=== PATIENT | female | born 1940 | race Caucasian/White ===

== ENCOUNTER 2017-09-30 03:20 | Emergency (ER) | payer MEDICARE ==
[2017-09-30] MEDS ORDERED: Sodium Chloride 0.9% 5 ML Syringe FLUSH PRN (03:46)
--- NOTE | 2017-09-30 03:57 | EDM.PDOC ---
ED HPI GENERAL MEDICAL PROBLEM - General Chief Complaint: Headache Stated Complaint: headache Time Seen by Provider: 09/30/17 03:30 Source of Information: Reports: Patient History Limitations: Reports: No Limitations - History of Present Illness INITIAL COMMENTS - FREE TEXT/NARRATIVE: 77 YO WF presents to ER complaining of occipital headache which began 2 days ago. Pt reports she bumped her head on a car door 2 days ago and has been having intermittent headaches since. Pt reports pain is also to the left side of her neck and left shoulder and worse with movement of her neck. Pt woke her this am and stated she wanted to go to the hospital to be evaluated due to the pain. Pt denies any fever/chills, no nausea/vomiting, no confusion or neurological deficits. Pt has had history of CVA in the past. Pt is alert and oriented x 4 without any obvious focal neurological deficits. Onset Date: 09/28/17 Duration: Day(s): (2), Improving Location: Reports: Head Quality: Reports: Ache Severity: Moderate Improves with: Reports: None Worsens with: Reports: Movement Associated Symptoms: Reports: No Other Symptoms, Headaches. Denies: Confusion, Nausea/Vomiting, Weakness Treatments [employer]: Reports: Acetaminophen Headache Pain Score (Numeric/FACES): 8 - Related Data Allergies Allergy/AdvReac Type Severity Reaction Status Date / Time adhesive Allergy Rash Verified 09/30/17 03:28 codeine Allergy Stomach Verified 09/30/17 03:28 Upset raspberry [Raspberry] Allergy Hives Verified 09/30/17 03:28 Home Meds: Home Meds Albuterol [Proair HFA] 2 puff INH Q4HR PRN 07/14/13 [History] Albuterol/Ipratropium [DuoNeb 3.0-0.5 MG/3 ML] 1 unit INH TID 07/14/13 [History] Aspirin [Halfprin] 81 mg PO BID 07/14/13 [History] Cholecalciferol (Vitamin D3) [Vitamin D] 2,000 unit PO DAILY 07/14/13 [History] Dipyridamole [Persantine] 75 mg PO BID 07/14/13 [History] Fluticasone Propionate [Flonase] 1 spray FILI BID 07/14/13 [History] Multivitamins [Tab-A-Rajinder] 1 each PO DAILY 07/14/13 [History] Omeprazole 20 mg PO DAILY 07/14/13 [History] Oxybutynin Chloride [Ditropan Xl] 0.5 tab PO BID 07/14/13 [History] QUEtiapine [SEROquel] 50 mg PO BEDTIME 07/14/13 [History] Simvastatin [Zocor] 40 mg PO BEDTIME 07/14/13 [History] Bisacodyl [Dulcolax] 5 mg PO DAILY PRN 12/19/14 [History] Denosumab [Prolia] 60 mg SUBCUT ASDIRECTED 12/19/14 [History] Docusate Sodium [Colace] 100 mg PO BID 12/19/14 [History] Nystatin/Triamcin [Nystatin-Triamcinolone Ointm] 1 applic TOP BEDTIME 12/19/14 [ History] Acetaminophen [Acetaminophen Extra Strength] 500 - 1,000 mg PO Q4H PRN 09/30/17 [History] Fluticasone Propionate [Flovent HFA 110 MCG] 1 puff INH BID 09/30/17 [History] Polyvinyl Alcohol/Povidone [Artificial Tears Drops] 1 - 2 drop EYEBOTH DAILY PRN 09/30/17 [History] amLODIPine Besylate [Norvasc] 5 mg PO DAILY 09/30/17 [History] buPROPion [buPROPion XL] 300 mg PO DAILY 09/30/17 [History] Past Medical History Other Cardiovascular History: Bradycardia ED ROS GENERAL - Review of Systems Review Of Systems: See Below Constitutional: Reports: No Symptoms HEENT: Reports: No Symptoms Respiratory: Reports: No Symptoms Cardiovascular: Reports: No Symptoms Endocrine: Reports: No Symptoms GI/Abdominal: Reports: No Symptoms : Reports: No Symptoms Musculoskeletal: Reports: Neck Pain Skin: Reports: No Symptoms Neurological: Reports: Headache, Pre-Existing Deficit. Denies: Confusion, Dizziness, Numbness, Paresthesia, Seizure, Syncope, Trouble Speaking, Difficulty Walking, Weakness, Change in Speech, Gait Disturbance Psychiatric: Reports: Depression Hematologic/Lymphatic: Reports: No Symptoms Immunologic: Reports: No Symptoms - Physical Exam Exam: See Below Exam Limited By: No Limitations General Appearance: Alert, WD/WN, No Apparent Distress Eye Exam: Bilateral Eye: EOMI, PERRL Ears: Normal External Exam, Normal Canal, Hearing Grossly Normal, Normal TMs Head Exam: Atraumatic, Normocephalic Neck: Supple, Full Range of Motion, Tender Lateral Respiratory/Chest: No Respiratory Distress, Lungs Clear, Normal Breath Sounds, No Accessory Muscle Use, Chest Non-Tender Cardiovascular: Normal Peripheral Pulses, Regular Rate, Rhythm, No Edema, No Gallop, No JVD, No Murmur, No Rub GI/Abdominal: Normal Bowel Sounds, Soft, Non-Tender, No Organomegaly, No Distention, No Abnormal Bruit, No Mass Neuro Exam (Abbreviated): Alert, Oriented, CN II-XII Intact, Normal Cognition, Normal Gait, Normal Reflexes, No Motor/Sensory Deficits Back Exam: Normal Inspection, Full Range of Motion, NT Extremities: Normal Inspection, Normal Range of Motion, Non-Tender, No Pedal Edema, Normal Capillary Refill Psychiatric: Normal Affect, Normal Mood Skin Exam: Warm, Dry, Intact, Normal Color, No Rash Course - Vital Signs Last Recorded V/S: Last Vital Signs Temp 36.9 C 09/30/17 03:20 Pulse 68 09/30/17 05:18 Resp 18 09/30/17 05:18 BP 149/72 H 09/30/17 05:18 Pulse Ox 92 L 09/30/17 05:18 - Orders/Labs/Meds Orders: Active Orders 24 hr Category Date Time Status Peripheral IV Care [RC] . DIRECTED Care 09/30/17 03:47 Ordered Sodium Chloride 0.9% [Syrex Flush] Med 09/30/17 03:46 Ordered 5 ml FLUSH Q8HR PRN Peripheral IV Insertion Adult [OM.PC] Routine Oth 09/30/17 03:46 Ordered Medication Orders Sodium Chloride (Syrex Flush) 5 ml FLUSH Q8HR PRN PRN Reason: Keep Vein Open Meds: Medications Generic Name Dose Route Start Last Admin Trade Name Freq PRN Reason Stop Dose Admin Sodium Chloride 5 ml 09/30/17 03:46 Syrex Flush FLUSH Q8HR PRN Keep Vein Open Discontinued Medications Generic Name Dose Route Start Last Admin Trade Name Freq PRN Reason Stop Dose Admin Hydromorphone HCl 0.5 mg 09/30/17 04:01 09/30/17 04:13 Dilaudid IVPUSH 09/30/17 04:02 0.5 mg ONETIME ONE Administration Ondansetron HCl 4 mg 09/30/17 04:02 09/30/17 04:13 Zofran IVPUSH 09/30/17 04:03 4 mg ONETIME ONE Administration - Re-Assessments/Exams Free Text/Narrative Re-Assessment/Exam: 09/30/17 04:37 Pt reports significant improvement after pain medication. Pt resting comfortably at this time. Pt alert and oriented x 4 and in NAD Free Text/Narrative Re-Assessment/Exam: 09/30/17 05:34 Pt feels fine and wants to leave prior to CT Head results- called radiologist x 2 regarding delay on read (1.5 hours) and unable to get an offical read at this time. 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 Departure - Departure Time of Disposition: 05:36 Disposition: Home, Self-Care 01 Condition: Good Clinical Impression: Tension-type headache - Discharge Information Instructions: Tension Headache, Adult, [id number] Referrals: Allison Humphries MD [Primary Care Provider] - Forms: ED Department Discharge, Refusal of Care AMA - My Orders Last 24 Hours: My Active Orders 09/30/17 03:46 Sodium Chloride 0.9% [Syrex Flush] 5 ml FLUSH Q8HR PRN Peripheral IV Insertion Adult [OM.PC] Routine 09/30/17 03:47 Peripheral IV Care [RC] . DIRECTED - Assessment/Plan Last 24 Hours: My Active Orders 09/30/17 03:46 Sodium Chloride 0.9% [Syrex Flush] 5 ml FLUSH Q8HR PRN Peripheral IV Insertion Adult [OM.PC] Routine 09/30/17 03:47 Peripheral IV Care [RC] . DIRECTED Assessment:: 1. Occipital headache Plan: 1. Discharge home 2. follow up with PCP for further evaluation and treatment 3. return to ER for worsening symptoms
[2017-09-30] MEDS: HYDROmorphone 1 MG/ML Syringe IVPUSH ONE (04:13)
[2017-09-30] MEDS: Ondansetron 4 MG/2 ML SDV IVPUSH ONE (04:13)
[2017-09-30 05:18] VITALS: BP 149/72
== END 2017-09-30 05:35 | disposition home or self-care (01) ==
LOC: KA.ED 03:20
DX: G44.209 Tension-type headache, unspecified, not intractable (principal); Z88.5 Allergy status to narcotic agent; Z88.8 Allergy status to other drugs, medicaments and biological substances; Z91.018 Allergy to other foods; Z79.899 Other long term (current) drug therapy
CPT/HCPCS: 70450; 96374; 96375; 99282; 99284; J1170; J2405

== ENCOUNTER 2019-10-04 18:29 | Inpatient (IN) | payer MEDICARE ==
[2019-10-04] MEDS ORDERED: Ondansetron 4 MG/2 ML SDV IV PRN (18:32)
[2019-10-04] MEDS ORDERED: Sodium Chloride 0.9% 10 ML Syringe FLUSH PRN (18:32)
[2019-10-04] MEDS ORDERED: Sodium Chloride 0.9% 300 ML IV ONE (18:53)
[2019-10-04] MEDS: cefTRIAXone 1 GM Vial IVPUSH SCH (19:30)
[2019-10-04] MEDS ORDERED: Bisacodyl 5 MG Tab PO PRN (20:38)
[2019-10-04] MEDS ORDERED: Acetaminophen/HYDROcodone 325-5 MG Tab PO PRN (20:47)
[2019-10-04] MEDS: Diclofenac Sodium 1% Gel 100 GM Tube TOP SCH (21:34)
[2019-10-04] MEDS: Docusate Sodium 100 MG Cap PO SCH (21:35)
[2019-10-04] MEDS: QUEtiapine 25 MG Tab PO SCH (21:35)
[2019-10-04] MEDS: Aspirin 81 MG Tab.EC PO SCH (21:36)
[2019-10-04] MEDS: Acetaminophen 500 MG Tab PO PRN (21:38)
[2019-10-04] MEDS: Albuterol/Ipratropium 3.0-0.5 MG/3 ML Neb Soln INH SCH (21:40)
[2019-10-04] MEDS: metroNIDAZOLE/Normal Saline 500 MG in Premix Bag 1 BAG IV SCH (21:41)
[2019-10-05] MEDS: Albuterol/Ipratropium 3.0-0.5 MG/3 ML Neb Soln INH SCH ×3 (06:05→18:15)
[2019-10-05] MEDS: Omeprazole 20 MG Cap.CR PO SCH (08:18)
[2019-10-05] MEDS: metroNIDAZOLE/Normal Saline 500 MG in Premix Bag 1 BAG IV SCH ×3 (08:18→20:45)
[2019-10-05] MEDS: Aspirin 81 MG Tab.EC PO SCH ×2 (08:18→21:57)
[2019-10-05] MEDS: buPROPion 150 MG Tab.ER PO SCH (08:18)
[2019-10-05] MEDS: amLODIPine 5 MG Tab PO SCH (08:18)
[2019-10-05] MEDS: Diclofenac Sodium 1% Gel 100 GM Tube TOP SCH ×3 (08:19→21:58)
[2019-10-05] MEDS: Acetaminophen 500 MG Tab PO PRN (08:29)
[2019-10-05] MEDS: Sodium Chloride 0.9% 1,000 ML IV SCH (08:50)
[2019-10-05] MEDS: Docusate Sodium 100 MG Cap PO SCH ×2 (09:39→21:57)
--- NOTE | 2019-10-05 09:45 | PCM.PN ---
- General Info Date of Service: 10/05/19 Subjective Update: Patient seems to improve today however still with right-sided abdominal pain upon palpation. Seems to be more worried about spouse situation at home. nursing surgical services director consult placed in. Functional Status: Reports: Pain Controlled, Tolerating Diet, Urinating. Denies: Ambulating, New Symptoms - Review of Systems General: Denies: Fever, Weakness, Fatigue, Malaise HEENT: Reports: No Symptoms Pulmonary: Reports: No Symptoms Cardiovascular: Reports: No Symptoms Gastrointestinal: Reports: Abdominal Pain, Diarrhea, Other (Appetite increased. Patient now hungry). Denies: Constipation, Decreased Appetite, Nausea, Vomiting Genitourinary: Reports: No Symptoms Musculoskeletal: Reports: Neck Pain Skin: Reports: Dryness Neurological: Denies: Confusion, Dizziness, Headache, Change in Speech Psychiatric: Reports: Mood Lability, Anxiety - Patient Data Vitals - Most Recent: Last Vital Signs Temp 97.4 F 10/05/19 07:00 Pulse 68 10/05/19 07:00 Resp 20 10/05/19 07:00 BP 144/75 H 10/05/19 08:18 Pulse Ox 94 L 10/05/19 09:11 Weight - Most Recent: 115 lb 12.8 oz I&O - Last 24 Hours: Intake & Output 10/04/19 10/05/19 10/05/19 22:59 06:59 14:59 Intake Total 300 150 Balance 300 150 Lab Results Last 24 Hours: Laboratory Results - last 24 hr 10/04/19 10/05/19 Range/Units 20:15 07:18 WBC 12.69 H (5.00-10.00) 10^3/uL RBC 3.61 L (3.80-5.50) 10^6/uL Hgb 11.0 L (12.0-16.0) g/dL Hct 35.1 L (37.0-47.0) % MCV 97.2 H (82.0-92.0) fL MCH 30.5 (27.0-31.0) pg MCHC 31.3 L (32.0-36.0) g/dL RDW 13.1 (11.5-14.5) % Plt Count 167 (150-400) 10^3/uL MPV 10.3 (7.4-10.4) fL Immature Gran % (Auto) 0.2 (0.0-5.0) % Neut % (Auto) 84.7 H (50.0-70.0) % Lymph % (Auto) 7.6 L (20.0-40.0) % [place] % (Auto) 6.1 (2.0-8.0) % Eos % (Auto) 1.2 (1.0-3.0) % Baso % (Auto) 0.2 (0.0-1.0) % Neut # (Auto) 10.75 H (2.50-7.00) 10^3/uL Lymph # (Auto) 0.96 L (1.00-4.00) 10^3/uL [place] # (Auto) 0.77 (0.10-0.80) 10^3/uL Eos # (Auto) 0.15 (0.10-0.30) 10^3/uL Baso # (Auto) 0.03 (0.00-0.10) 10^3/uL Immature Gran # (Auto) 0.03 (0.00-0.50) 10^3/uL Lactic Acid 0.8 (0.4-2.0) mmol/L Med Orders - Current: Current Medications Acetaminophen (Tylenol Extra Strength) 500 - 1,000 mg PO Q4H PRN PRN Reason: Pain Last Admin: 10/05/19 08:29 Dose: 500 mg Documented by: Hydrocodone Bitart/Acetaminophen ([place] 325-5 Mg) 1 tab PO Q6H PRN PRN Reason: abd pain Albuterol/Ipratropium (Duoneb 3.0-0.5 Mg/3 Ml) 3 ml INH TIDRT [facility] Last Admin: 10/05/19 06:05 Dose: 3 ml Documented by: Amlodipine Besylate (Norvasc) 5 mg PO DAILY [facility] Last Admin: 10/05/19 08:18 Dose: 5 mg Documented by: Aspirin (Halfprin) 81 mg PO BID [facility] Last Admin: 10/05/19 08:18 Dose: 81 mg Documented by: Bisacodyl (Dulcolax) 5 mg PO DAILY PRN PRN Reason: Constipation Bupropion HCl (Wellbutrin Xl) 300 mg PO DAILY [facility] Last Admin: 10/05/19 08:18 Dose: 300 mg Documented by: Ceftriaxone Sodium (Rocephin) 1 gm IVPUSH Q24H [facility] Last Admin: 10/04/19 19:30 Dose: 1 gm Documented by: Diclofenac Sodium (Voltaren 1% Gel) 0 gm TOP TID [facility] Last Admin: 10/05/19 08:19 Dose: 1 applic Documented by: Dipyridamole (Dipyridamole) 75 mg PO BID [facility] Last Admin: 10/05/19 08:17 Dose: 75 mg Documented by: Docusate Sodium (Colace) 100 mg PO BID [facility] Last Admin: 10/04/19 21:35 Dose: 100 mg Documented by: Sodium Chloride (Normal Saline) 1,000 mls @ 60 mls/hr IV ASDIRECTED [facility] Last Admin: 10/05/19 08:50 Dose: 60 mls/hr Documented by: Metronidazole 500 mg/ Premix 100 mls @ 100 mls/hr IV Q8H [facility] Last Admin: 10/05/19 08:18 Dose: Not Given Documented by: Omeprazole (Omeprazole) 20 mg PO Q48H [facility] Last Admin: 10/05/19 08:18 Dose: Not Given Documented by: Ondansetron HCl (Zofran) 4 mg IV Q4H PRN PRN Reason: Nausea/Vomiting Quetiapine Fumarate (Seroquel) 12.5 mg PO DAILY@1200 JAKOB Quetiapine Fumarate (Seroquel) 25 mg PO BEDTIME [facility] Last Admin: 10/04/19 21:35 Dose: 25 mg Documented by: Ramelteon (Rozerem) 8 mg PO BEDTIME PRN PRN Reason: delirium Sodium Chloride (Saline Flush) 10 ml FLUSH Q8HR PRN PRN Reason: keep vein open Discontinued Medications Sodium Chloride (Normal Saline) 300 mls @ 999 mls/hr IV .BOLUS ONE Stop: 10/04/19 19:11 Last Admin: 10/04/19 19:30 Dose: 999 mls/hr Documented by: - Exam Quality Assessment: No: Supplemental Oxygen General: Alert, Oriented, Mild Distress Neck: Supple Lungs: Clear to Auscultation, Normal Respiratory Effort Cardiovascular: Regular Rate, Murmurs. No: Irregular Rhythm GI/Abdominal Exam: Soft, No Distention, Guarding, Tender (Patient winces upon auscultation right mid and lower quadrant), Abnormal Bowel Sounds (Bowel tones increasing), Hernia. No: Distended, Rigid, Rebound, Splenomegaly Back Exam: No: CVA Tenderness (L), CVA Tenderness (R) Extremities: No Pedal Edema Peripheral Pulses: 2+: Radial (R) Skin: Dry Psy/Mental Status: Labile Mood, Anxious (Concern regarding home situation with spouse. States that she can no longer live with him) Sepsis Event Note - Evaluation Sepsis Screening Result: No Definite Risk - Focused Exam Vital Signs: Vital Signs Temp Pulse Resp BP BP Pulse Ox Pulse Ox 10/05/19 09:11 10/05/19 08:30 95 10/05/19 08:18 144/75 H 10/05/19 07:00 97.4 F 68 20 159/78 H 95 10/05/19 06:00 95 10/05/19 02:00 97.6 F 71 20 115/72 95 10/04/19 23:00 98.1 F 80 20 110/63 94 L 10/04/19 22:18 94 L 10/04/19 22:00 81 92 L Pulse Ox 10/05/19 09:11 94 L 10/05/19 08:30 10/05/19 08:18 10/05/19 07:00 10/05/19 06:00 10/05/19 02:00 10/04/19 23:00 10/04/19 22:18 10/04/19 22:00 Date Exam was Performed: 10/05/19 Time Exam was Performed: 10:05 - Problem List Review Problem List Initiated/Reviewed/Updated: Yes - My Orders Last 24 Hours: My Active Orders 10/04/19 Dinner Clear Liquid Diet [DIET] 10/04/19 18:32 Patient Status [ADT] Routine Bedrest Bathroom Privileges [RC] ,07 September Shower [RC] 09 Oxygen Therapy [RC] .PRN Vital Signs [RC] 03,07,11,15,19,23 Consult to Case Management/Certified Technician [CONS] Routine Ondansetron [Zofran] 4 mg IV Q4H PRN Sodium Chloride 0.9% [Saline Flush] 10 ml FLUSH Q8HR PRN Saline Lock Insert [OM.PC] Routine Resuscitation Status Routine 10/04/19 18:34 Intake and Output [RC] 06,14,22 10/04/19 18:35 Antiembolic Hose [OM.PC] Per Unit Routine 10/04/19 18:38 Antiembolic Devices [RC] 09,10/04/19 18:45 Sodium Chloride 0.9% [Normal Saline] 1,000 ml IV ASDIRECTED 10/04/19 19:00 cefTRIAXone [Rocephin] 1 gm IVPUSH Q24H 10/04/19 20:38 Acetaminophen [Tylenol Extra Strength] 500 - 1,000 mg PO Q4H PRN bisacodyL [Dulcolax] 5 mg PO DAILY PRN 10/04/19 20:47 Acetaminophen/HYDROcodone [[place] 325-5 MG] 1 tab PO Q6H PRN 10/04/19 20:48 Ramelteon [Rozerem] 8 mg PO BEDTIME PRN 10/04/19 21:00 Albuterol/Ipratropium [DuoNeb 3.0-0.5 MG/3 ML] 3 ml INH TIDRT Aspirin [Halfprin] 81 mg PO BID Diclofenac Sodium [Voltaren 1% Gel] 0 gm TOP TID Docusate Sodium [Colace] 100 mg PO BID metroNIDAZOLE/Normal Saline [Flagyl 500 MG in NS 100 ML] 500 mg Premix Bag 1 bag IV Q8H 10/04/19 21:15 Dipyridamole 75 mg PO BID QUEtiapine [SEROqueL] 25 mg PO BEDTIME 10/05/19 07:00 Omeprazole 20 mg PO Q48H 10/05/19 09:00 amLODIPine [Norvasc] 5 mg PO DAILY buPROPion [Wellbutrin XL] 300 mg PO DAILY 10/05/19 12:00 QUEtiapine [SEROqueL] 12.5 mg PO DAILY@1200 - Plan Plan:: History summary 79yr female was evaluated by this author yesterday [facility] later in the day when she came in complaining acute onset of sharp 9/10 right lower and middle abdominal pain. Pain began that morning on with fever, anorexia, nausea. Small bowel movement this morning does have a history of constipation. No ot her ill contacts yesterday was a good day for her without any pain. No history of appendix or gallbladder removal. No radiating pain no back pain shortness of breath or cardiac pain. Clinic findings Temp 99.7 WBC 13,000, neutrophilia ESR 15 Lactate normal (reassuring sign of non ischemic bowel) Normal lipase, amylase, ALT AST Guarding, facial grimaces on slight palpation RLQ CT ABD/ pelvis with and without contrast: likely infectious colitis with wall thickening ascending colon, broader differential ischemic colitis Hospital course Patient was admitted started on Flagyl, Rocephin, clear diet, NS bolus after contrast then maintenance rate at 60 cc/h. Although no overnight calls nurses reported 2 loose stools with mild diarrhea. Today on rounds patient appetite improving desires advance diet, no fever, no change in abdominal assessment non- rigid however guarding. Initial lactate normal. Primary hospital problems Colitis, likely infectious, Anxiety/mood lability regarding home situation Chronic problems COPD, GREG/LAMA CVA history, DAPT with ASA/Persantine Diverticulosis Pacemaker, Tobacco dependency, Hyperlipidemia, statin Hypertension, CCB Osteoporosis, due fo her Prolia as o/p Chronic cervical hip lumbar pain, tylenol, topical NSAIDS GERD, PPI Disposition/overall plan today --Continue with Flagyl and Rocephin --Continue with IV fluids until adequate intake --Advance diet to full liquid today, can have oatmeal --Monitor abdominal for increasing pain, rigidity --Repeat lactate today --TEDS, ACD -- consultation regarding marital discourse
[2019-10-05] MEDS ORDERED: Loperamide 2 MG Cap PO PRN (11:00)
[2019-10-05] MEDS: QUEtiapine 25 MG Tab PO SCH ×2 (11:29→21:58)
[2019-10-05] MEDS: cefTRIAXone 1 GM Vial IVPUSH SCH (18:10)
[2019-10-06] MEDS: Acetaminophen 500 MG Tab PO PRN ×2 (02:08→11:50)
[2019-10-06] MEDS: Sodium Chloride 0.9% 1,000 ML IV SCH (03:56)
[2019-10-06] MEDS: metroNIDAZOLE/Normal Saline 500 MG in Premix Bag 1 BAG IV SCH ×3 (05:04→21:30)
[2019-10-06] MEDS: Albuterol/Ipratropium 3.0-0.5 MG/3 ML Neb Soln INH SCH ×3 (06:58→18:24)
[2019-10-06] MEDS: Docusate Sodium 100 MG Cap PO SCH ×2 (08:28→21:34)
[2019-10-06] MEDS: amLODIPine 5 MG Tab PO SCH (08:29)
[2019-10-06] MEDS: buPROPion 150 MG Tab.ER PO SCH (08:29)
[2019-10-06] MEDS: Aspirin 81 MG Tab.EC PO SCH ×2 (08:29→21:35)
[2019-10-06] MEDS: Diclofenac Sodium 1% Gel 100 GM Tube TOP SCH ×3 (08:30→20:19)
[2019-10-06] MEDS: QUEtiapine 25 MG Tab PO SCH ×2 (11:49→21:35)
--- NOTE | 2019-10-06 12:39 | PCM.PN ---
- General Info Date of Service: 10/06/19 Subjective Update: 79 year old female sitting up in chair, states improvement today however still has right upper quadrant abdominal pain upon palpation. Continued concerns with spouse at home. 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 Functional Status: Reports: Pain Controlled, Tolerating Diet, Ambulating, Urinating. Denies: New Symptoms - Review of Systems General: Reports: Weakness, Fatigue. Denies: Fever, Chills HEENT: Reports: Headaches (mild). Denies: Dysphasia, Sinus Congestion, Sore Throat Pulmonary: Reports: Cough (rare). Denies: Shortness of Breath, Sputum, Wheezing Cardiovascular: Denies: Chest Pain, Palpitations, Edema, Lightheadedness Gastrointestinal: Reports: Abdominal Pain (RUQ). Denies: Constipation, Decreased Appetite, Diarrhea, Difficulty Swallowing, Melena, Nausea, Vomiting Genitourinary: Denies: Dysuria, Frequency, Burning Musculoskeletal: Reports: Neck Pain (chronic) Skin: Denies: Bruising, Rash Neurological: Reports: Headache (mild), Weakness. Denies: Confusion, Trouble Speaking, Difficulty Walking Psychiatric: Reports: Depression (with home situation). Denies: Confusion, Anxiety - Patient Data Vitals - Most Recent: Last Vital Signs Temp 36.8 C 10/06/19 11:00 Pulse 69 10/06/19 11:00 Resp 16 10/06/19 11:00 BP 123/73 10/06/19 11:00 Pulse Ox 93 L 10/06/19 11:00 Weight - Most Recent: 52.526 kg I&O - Last 24 Hours: Intake & Output 10/05/19 10/06/19 10/06/19 22:59 06:59 14:59 Intake Total 865 629 Balance 865 629 Lab Results Last 24 Hours: Laboratory Results - last 24 hr 10/06/19 Range/Units 08:31 WBC 10.68 H (5.00-10.00) 10^3/uL RBC 3.70 L (3.80-5.50) 10^6/uL Hgb 11.1 L (12.0-16.0) g/dL Hct 36.4 L (37.0-47.0) % MCV 98.4 H (82.0-92.0) fL MCH 30.0 (27.0-31.0) pg MCHC 30.5 L (32.0-36.0) g/dL RDW 13.1 (11.5-14.5) % Plt Count 182 (150-400) 10^3/uL MPV 10.0 (7.4-10.4) fL Immature Gran % (Auto) 0.2 (0.0-5.0) % Neut % (Auto) 85.0 H (50.0-70.0) % Lymph % (Auto) 9.0 L (20.0-40.0) % [place] % (Auto) 3.3 (2.0-8.0) % Eos % (Auto) 2.1 (1.0-3.0) % Baso % (Auto) 0.4 (0.0-1.0) % Neut # (Auto) 9.09 H (2.50-7.00) 10^3/uL Lymph # (Auto) 0.96 L (1.00-4.00) 10^3/uL [place] # (Auto) 0.35 (0.10-0.80) 10^3/uL Eos # (Auto) 0.22 (0.10-0.30) 10^3/uL Baso # (Auto) 0.04 (0.00-0.10) 10^3/uL Immature Gran # (Auto) 0.02 (0.00-0.50) 10^3/uL Med Orders - Current: Current Medications Acetaminophen (Tylenol Extra Strength) 500 - 1,000 mg PO Q4H PRN PRN Reason: Pain Last Admin: 10/06/19 11:50 Dose: 1,000 mg Documented by: Hydrocodone Bitart/Acetaminophen ([place] 325-5 Mg) 1 tab PO Q6H PRN PRN Reason: abd pain Albuterol/Ipratropium (Duoneb 3.0-0.5 Mg/3 Ml) 3 ml INH TIDRT [facility] Last Admin: 10/06/19 06:58 Dose: 3 ml Documented by: Amlodipine Besylate (Norvasc) 5 mg PO DAILY [facility] Last Admin: 10/06/19 08:29 Dose: 5 mg Documented by: Aspirin (Halfprin) 81 mg PO BID [facility] Last Admin: 10/06/19 08:29 Dose: 81 mg Documented by: Bisacodyl (Dulcolax) 5 mg PO DAILY PRN PRN Reason: Constipation Bupropion HCl (Wellbutrin Xl) 300 mg PO DAILY [facility] Last Admin: 10/06/19 08:29 Dose: 300 mg Documented by: Ceftriaxone Sodium (Rocephin) 1 gm IVPUSH Q24H [facility] Last Admin: 10/05/19 18:10 Dose: 1 gm Documented by: Diclofenac Sodium (Voltaren 1% Gel) 0 gm TOP TID [facility] Last Admin: 10/06/19 08:30 Dose: 1 applic Documented by: Dipyridamole (Dipyridamole) 75 mg PO BID [facility] Last Admin: 10/06/19 08:28 Dose: 75 mg Documented by: Docusate Sodium (Colace) 100 mg PO BID [facility] Last Admin: 10/06/19 08:28 Dose: 100 mg Documented by: Sodium Chloride (Normal Saline) 1,000 mls @ 60 mls/hr IV ASDIRECTED [facility] Last Admin: 10/06/19 03:56 Dose: 60 mls/hr Documented by: Metronidazole 500 mg/ Premix 100 mls @ 100 mls/hr IV Q8H [facility] Last Admin: 10/06/19 05:04 Dose: 100 mls/hr Documented by: Loperamide HCl (Imodium) 2 mg PO Q4H PRN PRN Reason: Diarrhea Last Admin: 10/05/19 11:29 Dose: 2 mg Documented by: Omeprazole (Omeprazole) 20 mg PO Q48H [facility] Last Admin: 10/05/19 08:18 Dose: Not Given Documented by: Ondansetron HCl (Zofran) 4 mg IV Q4H PRN PRN Reason: Nausea/Vomiting Quetiapine Fumarate (Seroquel) 12.5 mg PO DAILY@1200 [facility] Last Admin: 10/06/19 11:49 Dose: 12.5 mg Documented by: Quetiapine Fumarate (Seroquel) 25 mg PO BEDTIME [facility] Last Admin: 10/05/19 21:58 Dose: 25 mg Documented by: Ramelteon (Rozerem) 8 mg PO BEDTIME PRN PRN Reason: delirium Sodium Chloride (Saline Flush) 10 ml FLUSH Q8HR PRN PRN Reason: keep vein open Last Admin: 10/05/19 18:09 Dose: 10 ml Documented by: Discontinued Medications Sodium Chloride (Normal Saline) 300 mls @ 999 mls/hr IV .BOLUS ONE Stop: 10/04/19 19:11 Last Admin: 10/04/19 19:30 Dose: 999 mls/hr Documented by: - Exam Physical Findings Comments:: GENERAL: Well-appearing adult in no acute distress. HEENT: Normocephalic, atraumatic. Conjunctiva clear. Nares patent without discharge. Mucous membranes moist, posterior pharynx unremarkable. NECK: Supple, no masses. CV: Regular rate and rhythm, no murmurs, rubs, or gallops. 2+ radial pulses. PULMONARY: Normal effort, Rhochi noted to bilateral bases. No wheezing or rales ABDOMEN: Positive bowel sounds, soft, tender with minimal palpation of the right upper quadrant, nondistended. EXTREMITIES: No edema, cyanosis, or clubbing. MUSCULOSKELETAL: Moves all extremities well. NEUROLOGICAL: No obvious deficits. DERMATOLOGIC: No rashes or suspicious lesions in exposed areas. PSYCHIATRIC: Alert, interactive, appropriate affect. Tearful at times. Sepsis Event Note - Evaluation Sepsis Screening Result: No Definite Risk - Focused Exam Vital Signs: Vital Signs Temp Pulse Resp BP BP BP Pulse Ox 10/06/19 11:00 36.8 C 69 16 123/73 93 L 10/06/19 08:29 137/66 10/06/19 07:30 10/06/19 06:58 72 10/06/19 06:55 10/06/19 06:48 36.7 C 69 20 137/66 98 10/06/19 02:55 36.7 C 83 20 134/70 94 L 10/06/19 02:30 Pulse Ox Pulse Ox 10/06/19 11:00 10/06/19 08:29 10/06/19 07:30 91 L 10/06/19 06:58 97 10/06/19 06:55 97 10/06/19 06:48 10/06/19 02:55 10/06/19 02:30 94 L Date Exam was Performed: 10/06/19 Time Exam was Performed: 15:03 - Problem List Review Problem List Initiated/Reviewed/Updated: Yes - Plan Plan:: History summary 79yr female was evaluated by Carlitos Thurman on 10/05/2019 at the [facility] when she came in complaining acute onset of sharp 9/10 right lower and middle abdominal pain. Pain began that morning on with fever, anorexia, nausea. Small bowel movement this morning does have a history of constipation. No other ill contacts yesterday was a good day for her without any pain. No history of appendix or gallbladder removal. No radiating pain no back pain shortness of breath or cardiac pain. Clinic findings Temp 99.7 WBC 13,000, neutrophilia ESR 15 Lactate normal (reassuring sign of non ischemic bowel) Normal lipase, amylase, ALT AST Guarding, facial grimaces on slight palpation RLQ CT ABD/ pelvis with and without contrast: likely infectious colitis with wall thickening ascending colon, broader differential ischemic colitis Hospital course Day 1: Patient was admitted inpatient and started on Flagyl, Rocephin, clear diet, NS bolus after contrast then maintenance rate at 60 cc/h. Although no overnight calls nurses reported 2 loose stools with mild diarrhea. Today on rounds patient appetite improving desires advance diet, no fever, no change in abdominal assessment non-rigid however guarding. Initial lactate normal. Day 2: Ongoing abdominal pain with high risk concern due to colitis. WBC today 10.68, RBC 3.7, Hgb 11.1, Hct 36.4, with neutrophils of 9.09. Lactic acid 1.7. Afebrile overnight with no overnight nursing concerns. Tolerated full liquid diet without nausea. No BM as of yet today. Continued concerns with safety at home. 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 Hospitalization problems and plan: # Colitis, improving -continue ceftriaxone 1gm daily and metronidazole 500mg TID -continue loperamide as needed -continue ondansetron PRN -stop IV fluids and push oral fluids -advance diet to soft diet -recheck CBC and BMP on 10/07/2019 -monitor abdominal pain and report fever # Anxiety, r/t social situation -SS report for vulnerable adult due to marital discourse with report of concerns for safety at home -continue previous behavioral health medications -change PRN ramelteon to scheduled at HS # Tobacco dependency -monitor, report if need for NRT # Weakness -PT eval and treat Chronic, stable conditions: #COPD, continue DuoNeb, hold Flovent and albuterol HFA #CVA history, DAPT with ASA/Persantine #Diverticulosis #Pacemaker #Hyperlipidemia, continue simvastatin #Hypertension, continue amlodipine #Osteoporosis, due fo her Prolia as o/p #Chronic cervical hip lumbar pain, continue tylenol PRN, topical NSAIDS, PRN hydrocodone/APAP with docusate sodium #GERD, continue omeprazole #Depression, continue bupropion #Psychosis: continue quetiapine #Urge incontinence, continue oxybutynin Hospitalization details: # FEN: SL, soft diet, push oral fluids, electrolytes stable # PPX: TEDs, ACD, increase ambulation # Code status: Full code # Emergency contact: # Disposition: PT evaluation and treat and anticipate discharge to [facility] status 10/07/2019
[2019-10-06] MEDS: cefTRIAXone 1 GM Vial IVPUSH SCH (18:24)
[2019-10-06] MEDS ORDERED: Simvastatin 20 MG Tab PO SCH (21:00)
[2019-10-07] MEDS: metroNIDAZOLE/Normal Saline 500 MG in Premix Bag 1 BAG IV SCH (04:37)
[2019-10-07] MEDS ORDERED: Sodium Chloride 0.9% 250 ML IV SCH (05:00)
[2019-10-07] MEDS: Omeprazole 20 MG Cap.CR PO SCH (07:23)
[2019-10-07] MEDS: Albuterol/Ipratropium 3.0-0.5 MG/3 ML Neb Soln INH SCH (07:23)
[2019-10-07] MEDS: amLODIPine 5 MG Tab PO SCH (08:07)
[2019-10-07] MEDS: Docusate Sodium 100 MG Cap PO SCH (08:07)
[2019-10-07] MEDS: Aspirin 81 MG Tab.EC PO SCH (08:07)
[2019-10-07] MEDS: Diclofenac Sodium 1% Gel 100 GM Tube TOP SCH (08:07)
[2019-10-07] MEDS: buPROPion 150 MG Tab.ER PO SCH (08:07)
[2019-10-07 08:27] LABS: ANION GAP 15.1 mmol/L (5-15); CHLORIDE,CL 108 mmol/L (98-115); SODIUM,NA 149 mmol/L (136-145)
[2019-10-07] MEDS ORDERED: Oxybutynin 5 MG Tab.ER PO SCH (09:00)
--- NOTE | 2019-10-07 10:35 | PCM.DCSUM1 ---
Discharge Summary - Hospital Course Free Text/Narrative:: Date of admission: 10/04/2019 Date of discharge: 10/07/2019 Admission diagnoses: # Colitis # Anxiety, r/t social situation # Tobacco dependency # Weakness Discharge diagnoses: # Colitis, resolved # Anxiety, r/t social situation # Tobacco dependency # Weakness # COPD # CVA history # Diverticulosis # Pacemaker # Hyperlipidemia # Hypertension # Osteoporosis # Chronic cervical hip lumbar pain # GERD # Depression # Psychosis # Urge incontinence Consultations: director of social services for [facility] consult and vulnerable adult services Procedures: none Hospital course: 79yr female was evaluated by Carlitos Thurman on 10/05/2019 at the [facility] when she came in complaining acute onset of sharp 9/10 right lower and middle abdominal pain. Pain began that morning on with fever, anorexia, nausea. Small bowel movement this morning does have a history of constipation. No other ill contacts yesterday was a good day for her without any pain. No history of appendix or gallbladder removal. No radiating pain no back pain shortness of breath or cardiac pain. Day 1: Patient was admitted inpatient and started on Flagyl, Rocephin, clear diet, NS bolus after contrast then maintenance rate at 60 cc/h. Although no overnight calls nurses reported 2 loose stools with mild diarrhea. Today on rounds patient appetite improving desires advance diet, no fever, no change in abdominal assessment non-rigid however guarding. Initial lactate normal. Day 2: Ongoing abdominal pain with high risk concern due to colitis. WBC today 10.68, RBC 3.7, Hgb 11.1, Hct 36.4, with neutrophils of 9.09. Lactic acid 1.7. Afebrile overnight with no overnight nursing concerns. Tolerated full liquid diet without nausea. No BM as of yet today. Continued concerns with safety at home. director of social services continuing to work on options for safety at discharge. Day 3: No overnight concerns. VSS. WBC 6.24, RBC 3.34, Hgb 10.1, Hct 32.5, Na 149, Ca 7.9. Patient desires to go home. Reviewed safety concerns and patient relays that she is no longer concerned for her safety. She desires to go home with her and states that he has never been physically abusive, "he just yells". Reinforced that vulnerable adult services will still check in with her after discharge. Patient verbalizes appreciation for the help and states that she wants to go back home. She states she is not interested in rehab services or physical therapy. Discharge and follow-up recommendations: - Discharge to home - New medications at discharge: - Augmentin 875/125mg 1 tab BID x 5 days - Follow-up Thursday10/11/2019 with Carlitos Thurman. - Recommendations on follow up - Follow up hypocalcemia and hypernatremia Diagnosis: Stroke: No - Discharge Data Discharge Date: 10/07/19 Discharge Disposition: Home, Self-Care 01 Condition: Fair - Referral to Home Health Primary Care Physician: Carlitos Thurman NP - Patient Summary/Data Consults: Consultations 10/04/19 18:32 Consult to Case Management/Under Baster [CONS] Routine 10/06/19 13:26 PT Evaluation and Treatment [CONS] Routine - Patient Instructions Diet: Usual Diet as Tolerated Notify Provider of: Fever, Increased Pain, Nausea and/or Vomiting - Discharge Plan *PRESCRIPTION DRUG MONITORING PROGRAM REVIEWED*: Not Applicable *COPY OF PRESCRIPTION DRUG MONITORING REPORT IN PATIENT AKBAR: Not Applicable Prescriptions/Med Rec: Amoxicillin/Potassium Clav [Augmentin 875-125 Tablet] 1 each PO BID 5 Days #10 tablet Home Medications: Home Meds Albuterol [Proair HFA] 2 puff INH Q4HR PRN 07/14/13 [History] Albuterol/Ipratropium [DuoNeb 3.0-0.5 MG/3 ML] 1 unit INH TID 07/14/13 [History] Aspirin [Halfprin] 81 mg PO ,07/14/13 [History] Cholecalciferol (Vitamin D3) [Vitamin D3] 2,000 unit PO DAILY 07/14/13 [History] Dipyridamole [Persantine] 75 mg PO ,07/14/13 [History] Multivitamins [Tab-A-Rajinder] 1 each PO DAILY 07/14/13 [History] Omeprazole 20 mg PO Q2D 07/14/13 [History] Oxybutynin Chloride [Ditropan Xl] 1 tab PO 09 07/14/13 [History] QUEtiapine [SEROquel] 25 mg PO BEDTIME 07/14/13 [History] Bisacodyl [Dulcolax] 5 mg PO DAILY PRN 12/19/14 [History] Denosumab [Prolia] 60 mg SUBCUT ASDIRECTED 12/19/14 [History] Docusate Sodium [Colace] 100 mg PO 12/19/14 [History] Acetaminophen [Acetaminophen Extra Strength] 500 - 1,000 mg PO Q4H PRN 09/30/17 [History] Fluticasone Propionate [Flovent HFA 110 MCG] 1 puff INH BID 09/30/17 [History] Polyvinyl Alcohol/Povidone [Artificial Tears Drops] 1 - 2 drop EYEBOTH DAILY PRN 09/30/17 [History] amLODIPine Besylate [Norvasc] 5 mg PO DAILY 09/30/17 [History] buPROPion [buPROPion XL] 300 mg PO DAILY 09/30/17 [History] Beta-Carotene(A) w/C & E/Min [Prosight] 1 tab PO ,10/04/19 [History] QUEtiapine [SEROquel] 12.5 mg PO 12 10/04/19 [History] Simvastatin [Zocor] 20 mg PO BEDTIME 10/04/19 [History] Amoxicillin/Potassium Clav [Augmentin 875-125 Tablet] 1 each PO BID 5 Days #10 tablet 10/07/19 [Rx] - Discharge Summary/Plan Comment DC Time >30 min.: Yes - General Info Date of Service: 10/07/19 Subjective Update: 79 year old female denies overnight concerns. Patient states she wants to go home. Functional Status: Reports: Pain Controlled, Tolerating Diet, Ambulating, Urinating - Review of Systems General: Denies: Fever, Weakness, Fatigue HEENT: Reports: Headaches (mild, chronic). Denies: Sinus Congestion, Sore Throat Pulmonary: Reports: Cough (rare). Denies: Shortness of Breath, Sputum, Wheezing Cardiovascular: Denies: Chest Pain, Palpitations, Edema Gastrointestinal: Reports: Abdominal Pain (mild RUQ), Flatus. Denies: Constipation, Decreased Appetite, Diarrhea, Difficulty Swallowing, Nausea, Vomiting Genitourinary: Denies: Dysuria, Frequency, Urgency, Hematuria Musculoskeletal: Reports: Neck Pain (chronic). Denies: Back Pain, Leg Pain Skin: Denies: Pallor, Bruising, Rash Neurological: Reports: Headache (mild, chronic). Denies: Confusion, Trouble Speaking, Weakness Psychiatric: Denies: Confusion, Depression, Anxiety - Patient Data Vitals - Most Recent: Last Vital Signs Temp 36.6 C 10/07/19 06:41 Pulse 65 10/07/19 07:23 Resp 20 10/07/19 06:41 BP 123/65 10/07/19 08:07 Pulse Ox 97 10/07/19 07:23 Weight - Most Recent: 52.526 kg I&O - Last 24 hours: Intake & Output 10/06/19 10/07/19 10/07/19 22:59 06:59 14:59 Intake Total 560 225 Balance 560 225 Lab Results - Last 24 hrs: Laboratory Results - last 24 hr 10/07/19 10/07/19 Range/Units 07:10 07:10 WBC 6.24 (5.00-10.00) 10^3/uL RBC 3.34 L (3.80-5.50) 10^6/uL Hgb 10.1 L (12.0-16.0) g/dL Hct 32.5 L (37.0-47.0) % MCV 97.3 H (82.0-92.0) fL MCH 30.2 (27.0-31.0) pg MCHC 31.1 L (32.0-36.0) g/dL RDW 12.9 (11.5-14.5) % Plt Count 171 (150-400) 10^3/uL MPV 10.1 (7.4-10.4) fL Immature Gran % (Auto) 0.0 (0.0-5.0) % Neut % (Auto) 70.4 H (50.0-70.0) % Lymph % (Auto) 15.2 L (20.0-40.0) % [place] % (Auto) 8.0 (2.0-8.0) % Eos % (Auto) 5.9 H (1.0-3.0) % Baso % (Auto) 0.5 (0.0-1.0) % Neut # (Auto) 4.39 (2.50-7.00) 10^3/uL Lymph # (Auto) 0.95 L (1.00-4.00) 10^3/uL [place] # (Auto) 0.50 (0.10-0.80) 10^3/uL Eos # (Auto) 0.37 H (0.10-0.30) 10^3/uL Baso # (Auto) 0.03 (0.00-0.10) 10^3/uL Immature Gran # (Auto) 0.00 (0.00-0.50) 10^3/uL Sodium 149 H (136-145) mmol/L Potassium 3.5 (3.3-5.3) mmol/L Chloride 108 (98-115) mmol/L Carbon Dioxide 29.4 (21.0-32.0) mmol/L Anion Gap 15.1 H (5-15) mmol/L BUN 7 (6-25) mg/dL Creatinine 0.85 (0.51-1.17) mg/dL Est Cr Clr Drug Dosing 43.14 mL/min Estimated GFR (MDRD) > 60 mL/min Glucose 82 (75 - 99) mg/dL Calcium 7.9 L (8.7-10.3) mg/dL Med Orders - Current: Current Medications Acetaminophen (Tylenol Extra Strength) 500 - 1,000 mg PO Q4H PRN PRN Reason: Pain Last Admin: 10/06/19 11:50 Dose: 1,000 mg Documented by: Hydrocodone Bitart/Acetaminophen ([place] 325-5 Mg) 1 tab PO Q6H PRN PRN Reason: abd pain Last Admin: 10/06/19 20:18 Dose: 1 tab Documented by: Albuterol/Ipratropium (Duoneb 3.0-0.5 Mg/3 Ml) 3 ml INH TIDRT [facility] Last Admin: 10/07/19 07:23 Dose: 3 ml Documented by: Amlodipine Besylate (Norvasc) 5 mg PO DAILY [facility] Last Admin: 10/07/19 08:07 Dose: 5 mg Documented by: Aspirin (Halfprin) 81 mg PO BID [facility] Last Admin: 10/07/19 08:07 Dose: 81 mg Documented by: Bisacodyl (Dulcolax) 5 mg PO DAILY PRN PRN Reason: Constipation Bupropion HCl (Wellbutrin Xl) 300 mg PO DAILY [facility] Last Admin: 10/07/19 08:07 Dose: 300 mg Documented by: Ceftriaxone Sodium (Rocephin) 1 gm IVPUSH Q24H [facility] Last Admin: 10/06/19 18:24 Dose: 1 gm Documented by: Diclofenac Sodium (Voltaren 1% Gel) 0 gm TOP TID [facility] Last Admin: 10/07/19 08:07 Dose: 1 applic Documented by: Dipyridamole (Dipyridamole) 75 mg PO BID [facility] Last Admin: 10/07/19 08:06 Dose: 75 mg Documented by: Docusate Sodium (Colace) 100 mg PO BID [facility] Last Admin: 10/07/19 08:07 Dose: 100 mg Documented by: Metronidazole 500 mg/ Premix 100 mls @ 100 mls/hr IV Q8H [facility] Last Admin: 10/07/19 04:37 Dose: 100 mls/hr Documented by: Sodium Chloride (Normal Saline) 250 mls @ 100 mls/hr IV DAILY@0500 [facility] Last Admin: 10/07/19 04:40 Dose: 100 mls/hr Documented by: Loperamide HCl (Imodium) 2 mg PO Q4H PRN PRN Reason: Diarrhea Last Admin: 10/05/19 11:29 Dose: 2 mg Documented by: Omeprazole (Omeprazole) 20 mg PO Q48H [facility] Last Admin: 10/07/19 07:23 Dose: 20 mg Documented by: Ondansetron HCl (Zofran) 4 mg IV Q4H PRN PRN Reason: Nausea/Vomiting Oxybutynin Chloride (Oxybutynin Er) 5 mg PO DAILY@0900 [facility] Last Admin: 10/07/19 08:06 Dose: 5 mg Documented by: Quetiapine Fumarate (Seroquel) 12.5 mg PO DAILY@1200 [facility] Last Admin: 10/06/19 11:49 Dose: 12.5 mg Documented by: Quetiapine Fumarate (Seroquel) 25 mg PO BEDTIME [facility] Last Admin: 10/06/19 21:35 Dose: 25 mg Documented by: Ramelteon (Rozerem) 8 mg PO BEDTIME [facility] Last Admin: 10/06/19 21:35 Dose: 8 mg Documented by: Simvastatin (Zocor) 20 mg PO BEDTIME [facility] Last Admin: 10/06/19 21:34 Dose: 20 mg Documented by: Sodium Chloride (Saline Flush) 10 ml FLUSH Q8HR PRN PRN Reason: keep vein open Last Admin: 10/05/19 18:09 Dose: 10 ml Documented by: Discontinued Medications Sodium Chloride (Normal Saline) 1,000 mls @ 60 mls/hr IV ASDIRECTED [facility] Last Admin: 10/06/19 03:56 Dose: 60 mls/hr Documented by: Sodium Chloride (Normal Saline) 300 mls @ 999 mls/hr IV .BOLUS ONE Stop: 10/04/19 19:11 Last Admin: 10/04/19 19:30 Dose: 999 mls/hr Documented by: Ramelteon (Rozerem) 8 mg PO BEDTIME PRN PRN Reason: delirium - Exam Physical Findings Comments:: GENERAL: Well-appearing adult in no acute distress. HEENT: Normocephalic, atraumatic. Conjunctiva clear. Nares patent without discharge. Mucous membranes moist, posterior pharynx unremarkable. NECK: Supple, no masses. CV: Regular rate and rhythm, no murmurs, rubs, or gallops. 2+ radial pulses. PULMONARY: Normal effort, clear to auscultation bilaterally, no wheezes, rales, or rhonchi. ABDOMEN: Positive bowel sounds, soft, mild tenderness upon palpation of the right upper quadrant, nondistended. EXTREMITIES: No edema, cyanosis, or clubbing. MUSCULOSKELETAL: Moves all extremities well. NEUROLOGICAL: No obvious deficits. DERMATOLOGIC: No rashes or suspicious lesions in exposed areas. PSYCHIATRIC: Alert, interactive, appropriate affect.
[2019-10-07 11:54] VITALS: BP 160/84; PULSE 69
== END 2019-10-07 11:50 | disposition home or self-care (01) | DRG 392 ==
LOC: KA.MS 18:29
PROVIDERS: ADMIT Nurse Practitioner Family; ATTEND Nurse Practitioner Family
DX: K52.9 Noninfective gastroenteritis and colitis, unspecified (principal); F41.9 Anxiety disorder, unspecified; F17.210 Nicotine dependence, cigarettes, uncomplicated; J44.9 Chronic obstructive pulmonary disease, unspecified; Z86.73 Personal history of transient ischemic attack (TIA), and cerebral infarction without residual deficits; Z95.0 Presence of cardiac pacemaker; E78.5 Hyperlipidemia, unspecified; I10 Essential (primary) hypertension; M81.0 Age-related osteoporosis without current pathological fracture; K21.9 Gastro-esophageal reflux disease without esophagitis; F32.9 Major depressive disorder, single episode, unspecified; N39.41 Urge incontinence; Z79.82 Long term (current) use of aspirin; Z79.899 Other long term (current) drug therapy; Z91.09 Other allergy status, other than to drugs and biological substances; G89.29 Other chronic pain; M54.2 Cervicalgia; M54.5 Low back pain; Z88.6 Allergy status to analgesic agent
CPT/HCPCS: 36415; 80048; 83605; 85025; 94640; 97162-GP; A9270-GY; J0696; J3490; J7030; J7050; J7620-GY

== ENCOUNTER 2021-03-10 21:49 | Emergency (ER) | payer MEDICARE ==
[2021-03-10] MEDS: Sodium Chloride 0.9% 1,000 ML IV ONE ×2 (21:59→23:40)
--- NOTE | 2021-03-10 21:59 | EDM.PDOC ---
ED HPI GENERAL MEDICAL PROBLEM - General Chief Complaint: General Stated Complaint: ABDOMINAL PAIN/VOMITING Time Seen by Provider: 03/10/21 21:50 Source of Information: Reports: Patient, EMS, Family History Limitations: Reports: No Limitations - History of Present Illness INITIAL COMMENTS - FREE TEXT/NARRATIVE: 80 YO WF PRESENTS TO ER BY EMS WITH COMPLAINTS OF N/V AND GENERALIZED ABDOMINAL PAIN WHICH BEGAN AFTER SUPPER TODAY. PT IS A POOR HISTORIAN AND IS UNABLE TO PROVIDE MUCH HISTORY OF CURRENT EVENTS. DISCUSSED WITH SON WHO WAS UNABLE TO PROVIDE ANY MORE INFORMATION OTHER THAN HIS BELIEF THAT HIS MOM IS HAVING SOME COGNITIVE DECLINE OVER THE LAST YEAR. NO FEVER/CHILLS, NO ACTIVE VOMITING CURRENTLY. PT WITH INITIAL BP-98/58. PT REPORTS GENERALIZED ABDOMINAL PAIN WITH HISTORY OF COLITIS. PT DENIES CHEST PAIN BUT REPORTS CHRONIC SHORTNESS OF BREATH AND IS UNABLE TO TELL ME IF THIS HAS BEEN ANY WORSE RECENTLY. Onset: Today Location: Reports: Abdomen Quality: Reports: Ache Severity: Moderate Improves with: Reports: None Worsens with: Reports: Movement Associated Symptoms: Reports: No Other Symptoms, Loss of Appetite, Nausea/Vomiting, Shortness of Breath Abdomen Pain Score (Numeric/FACES): 5 - Related Data Allergies Allergy/AdvReac Type Severity Reaction Status Date / Time adhesive Allergy Rash Verified 03/10/21 22:09 codeine Allergy Stomach Verified 03/10/21 22:09 Upset raspberry [Raspberry] Allergy Hives Verified 03/10/21 22:09 Home Meds: Home Meds Albuterol [Proair HFA] 2 puff INH Q4HR PRN 07/14/13 [History] Albuterol/Ipratropium [DuoNeb 3.0-0.5 MG/3 ML] 1 unit INH TID 07/14/13 [History] Aspirin [Halfprin] 81 mg PO ,07/14/13 [History] Cholecalciferol (Vitamin D3) [Vitamin D3] 2,000 unit PO DAILY 07/14/13 [History] Dipyridamole [Persantine] 75 mg PO ,07/14/13 [History] Multivitamins [Tab-A-Rajinder] 1 each PO DAILY 07/14/13 [History] Omeprazole 20 mg PO Q2D 07/14/13 [History] Oxybutynin Chloride [Ditropan Xl] 1 tab PO 09 07/14/13 [History] QUEtiapine [SEROquel] 25 mg PO BEDTIME 07/14/13 [History] Bisacodyl [Dulcolax] 5 mg PO DAILY PRN 12/19/14 [History] Docusate Sodium [Colace] 100 mg PO 12/19/14 [History] Acetaminophen [Acetaminophen Extra Strength] 500 - 1,000 mg PO Q4H PRN 09/30/17 [History] Fluticasone Propionate [Flovent HFA 110 MCG] 1 puff INH BID 09/30/17 [History] Polyvinyl Alcohol/Povidone [Artificial Tears Drops] 1 - 2 drop EYEBOTH DAILY PRN 09/30/17 [History] amLODIPine Besylate [Norvasc] 5 mg PO DAILY 09/30/17 [History] buPROPion [buPROPion XL] 300 mg PO DAILY 09/30/17 [History] QUEtiapine [SEROquel] 12.5 mg PO 12 10/04/19 [History] Simvastatin [Zocor] 20 mg PO BEDTIME 10/04/19 [History] Diclofenac Sodium [Voltaren 1% Gel] 2 g TOP TID 03/11/21 [History] Donepezil [Aricept] 5 mg PO BEDTIME 03/11/21 [History] lisinopriL [Lisinopril] 10 mg PO DAILY 03/11/21 [History] Past Medical History HEENT History: Reports: Cataract, Impaired Vision Cardiovascular History: Reports: Hypertension, Pacemaker Other Cardiovascular History: Bradycardia Respiratory History: Reports: Asthma Gastrointestinal History: Reports: Chronic Constipation, Hemorrhoids Genitourinary History: Reports: Urinary Incontinence US[employer]AD History: Reports: Musculoskeletal History: Reports: Arthritis, Neck Pain, Chronic Neurological History: Reports: CVA Other Neuro History: Patient is a poor historian of medical history Psychiatric History: Reports: Depression - Infectious Disease History Infectious Disease History: Reports: Scarlet Fever - Past Surgical History Head Surgeries/Procedures: Reports: None HEENT Surgical History: Reports: Cataract Surgery Cardiovascular Surgical History: Reports: Pacer GI Surgical History: Reports: None Female Surgical History: Reports: Hysterectomy Neurological Surgical History: Reports: None Musculoskeletal Surgical History: Reports: None Social & Family History - Family History Family Medical History: Unobtainable - Caffeine Use Caffeine Use: Reports: Soda ED ROS GENERAL - Review of Systems Review Of Systems: See Below Constitutional: Reports: No Symptoms HEENT: Reports: No Symptoms Respiratory: Reports: Shortness of Breath Cardiovascular: Reports: No Symptoms Endocrine: Reports: No Symptoms GI/Abdominal: Reports: Abdominal Pain, Nausea, Vomiting : Reports: No Symptoms Musculoskeletal: Reports: Neck Pain, Shoulder Pain Skin: Reports: No Symptoms Neurological: Reports: No Symptoms Psychiatric: Reports: No Symptoms Hematologic/Lymphatic: Reports: No Symptoms Immunologic: Reports: No Symptoms ED EXAM, GENERAL - Physical Exam Exam: See Below Exam Limited By: No Limitations General Appearance: Alert, WD/WN, Mild Distress Eye Exam: Bilateral Eye: PERRL Head: Atraumatic, Normocephalic Neck: Normal Inspection, Supple, Non-Tender, Full Range of Motion Respiratory/Chest: No Respiratory Distress, Lungs Clear, Normal Breath Sounds, No Accessory Muscle Use, Chest Non-Tender Cardiovascular: Normal Peripheral Pulses, Regular Rate, Rhythm, No Edema, No Gallop, No JVD, No Murmur, No Rub GI/Abdominal: Soft, No Organomegaly, No Distention, No Abnormal Bruit, No Mass, Pelvis Stable, Rebound, Tender Back Exam: Normal Inspection, Full Range of Motion, NT Extremities: Normal Inspection, Normal Range of Motion, Non-Tender, Normal Capillary Refill, No Pedal Edema Neurological: Alert, CN II-XII Intact, Normal Cognition, Normal Gait, No Motor/Sensory Deficits Psychiatric: Normal Affect, Normal Mood Skin Exam: Warm, Dry, Intact, Normal Color, No Rash Lymphatic: No Adenopathy #1 Interpretation EKG Date: 03/10/21 Time: 22:16 Rhythm: NSR Rate (Beats/Min): 60 [place]: Normal P-Wave: Present QRS: Normal ST-T: Normal QT: Normal EKG Interpretation Comments: 100% AV PACED Course - Vital Signs Last Recorded V/S: Last Vital Signs Temp 96.7 F L 03/10/21 22:02 Pulse 67 03/11/21 00:18 Resp 24 H 03/11/21 00:14 BP 133/50 L 03/11/21 00:18 Pulse Ox 100 03/10/21 23:00 - Orders/Labs/Meds Orders: Active Orders 24 hr Category Date Time Status Blood Pressure Mgt: Sepsis [RC] Q15MX2 Care 03/10/21 21:57 Active Abdomen Pelvis wo Cont [CT] Stat Exams 03/10/21 22:19 Ordered Chest 1V Frontal [CR] Stat Exams 03/10/21 21:57 Ordered CULTURE BLOOD [BC] Stat Lab 03/10/21 21:57 Ordered CULTURE BLOOD [BC] Stat Lab 03/10/21 22:00 Received REFLEX LACTIC ACID YES OR NO [CHEM] Routine Lab 03/10/21 22:34 Received UA W/MICROSCOPIC [URIN] Stat Lab 03/10/21 21:57 Ordered Sodium Chloride 0.9% [Saline Flush] Med 03/10/21 21:57 Active 10 ml FLUSH Q8HR PRN Blood Culture x2 Reflex Set [OM.PC] Stat Oth 03/10/21 21:57 Ordered Saline Lock Insert [OM.PC] Stat Oth 03/10/21 21:57 Ordered Severe Sepsis Onset Time [OM.PC] Stat Oth 03/10/21 21:57 Ordered EKG 12 Lead [EK] Stat Ther 03/10/21 21:57 Ordered Medication Orders Sodium Chloride (Sodium Chloride 0.9% 10 Ml Syringe) 10 ml FLUSH Q8HR PRN PRN Reason: keep vein open Last Admin: 03/10/21 23:31 Dose: 10 ml Documented by: CAPRICE Labs: Laboratory Tests 03/10/21 03/10/21 03/10/21 Range/Units 22:00 22:00 22:00 WBC 9.46 (5.00-10.00) 10^3/uL RBC 4.97 (3.80-5.50) 10^6/uL Hgb 15.0 D (12.0-16.0) g/dL Hct 49.3 H (37.0-47.0) % MCV 99.2 H (82.0-92.0) fL MCH 30.2 (27.0-31.0) pg MCHC 30.4 L (32.0-36.0) g/dL RDW 13.3 (11.5-14.5) % Plt Count 229 (150-400) 10^3/uL MPV 10.0 (7.4-10.4) fL Immature Gran % (Auto) 0.4 (0.0-5.0) % Neut % (Auto) 75.1 H (50.0-70.0) % Lymph % (Auto) 19.0 L (20.0-40.0) % [place] % (Auto) 2.4 (2.0-8.0) % Eos % (Auto) 2.4 (1.0-3.0) % Baso % (Auto) 0.7 (0.0-1.0) % Neut # (Auto) 7.09 H (2.50-7.00) 10^3/uL Lymph # (Auto) 1.80 (1.00-4.00) 10^3/uL [place] # (Auto) 0.23 (0.10-0.80) 10^3/uL Eos # (Auto) 0.23 (0.10-0.30) 10^3/uL Baso # (Auto) 0.07 (0.00-0.10) 10^3/uL Immature Gran # (Auto) 0.04 (0.00-0.50) 10^3/uL Sodium 142 (136-145) mmol/L Potassium 5.2 H (3.5-5.1) mmol/L Chloride 104 (98-107) mmol/L Carbon Dioxide 20.2 L (21.0-32.0) mmol/L Anion Gap 23.0 H (5-15) mmol/L BUN 32 H (7-18) mg/dL Creatinine 2.08 H (0.51-1.17) mg/dL Est Cr Clr Drug Dosing 16.65 mL/min Estimated GFR (MDRD) 23 mL/min Glucose 198 H (70-140) mg/dL Lactic Acid 5.8 H (0.4-2.0) mmol/L Calcium 8.9 (8.7-10.3) mg/dL Total Bilirubin 0.5 (0.2-1.0) mg/dL AST 83 H (15-37) U/L ALT 56 (14-63) U/L Alkaline Phosphatase 69 (46-116) U/L Troponin I High Sens 78.700 H* (0-51.000) pg/mL Total Protein 6.8 (6.4-8.2) g/dL Albumin 3.62 (3.40-5.00) g/dL SARS CoV-2 RNA Rapid PEDRO (NEGATIVE) 03/10/21 Range/Units 22:17 WBC (5.00-10.00) 10^3/uL RBC (3.80-5.50) 10^6/uL Hgb (12.0-16.0) g/dL Hct (37.0-47.0) % MCV (82.0-92.0) fL MCH (27.0-31.0) pg MCHC (32.0-36.0) g/dL RDW (11.5-14.5) % Plt Count (150-400) 10^3/uL MPV (7.4-10.4) fL Immature Gran % (Auto) (0.0-5.0) % Neut % (Auto) (50.0-70.0) % Lymph % (Auto) (20.0-40.0) % [place] % (Auto) (2.0-8.0) % Eos % (Auto) (1.0-3.0) % Baso % (Auto) (0.0-1.0) % Neut # (Auto) (2.50-7.00) 10^3/uL Lymph # (Auto) (1.00-4.00) 10^3/uL [place] # (Auto) (0.10-0.80) 10^3/uL Eos # (Auto) (0.10-0.30) 10^3/uL Baso # (Auto) (0.00-0.10) 10^3/uL Immature Gran # (Auto) (0.00-0.50) 10^3/uL Sodium (136-145) mmol/L Potassium (3.5-5.1) mmol/L Chloride (98-107) mmol/L Carbon Dioxide (21.0-32.0) mmol/L Anion Gap (5-15) mmol/L BUN (7-18) mg/dL Creatinine (0.51-1.17) mg/dL Est Cr Clr Drug Dosing mL/min Estimated GFR (MDRD) mL/min Glucose (70-140) mg/dL Lactic Acid (0.4-2.0) mmol/L Calcium (8.7-10.3) mg/dL Total Bilirubin (0.2-1.0) mg/dL AST (15-37) U/L ALT (14-63) U/L Alkaline Phosphatase (46-116) U/L Troponin I High Sens (0-51.000) pg/mL Total Protein (6.4-8.2) g/dL Albumin (3.40-5.00) g/dL SARS CoV-2 RNA Rapid PEDRO Negative (NEGATIVE) Meds: Medications Generic Name Dose Route Start Last Admin Trade Name Freq PRN Reason Stop Dose Admin Sodium Chloride 10 ml 03/10/21 21:57 03/10/21 23:31 Sodium Chloride 0.9% 10 Ml Syringe FLUSH 10 ml Q8HR PRN Administration keep vein open Discontinued Medications Generic Name Dose Route Start Last Admin Trade Name Freq PRN Reason Stop Dose Admin Cefepime HCl 1 gm 03/10/21 23:12 03/10/21 23:30 Cefepime 1 Gm Vial IVPUSH 03/10/21 23:13 1 gm ONETIME ONE Administration Sodium Chloride 1,000 mls @ 1,000 mls/hr 03/10/21 21:57 03/10/21 21:59 Normal Saline IV 03/10/21 22:56 1,000 mls/hr BOLUS ONE Administration Protocol Sodium Chloride 50 mls @ 200 mls/min 03/10/21 22:30 Normal Saline IV ASDIRECTED JAKOB Sodium Chloride 1,000 mls @ 999 mls/hr 03/10/21 23:33 03/10/21 23:40 Normal Saline IV 03/11/21 00:33 999 mls/hr .BOLUS ONE Administration Iopamidol 75 ml 03/10/21 22:28 03/10/21 23:32 Iopamidol 755 Mg/Ml 75 Ml Bottle IVPUSH 03/10/21 22:29 Not Given ONETIME ONE - Re-Assessments/Exams Free Text/Narrative Re-Assessment/Exam: 03/11/21 23:23 CALL PLACED TO [facility]- NO BEDS CALL PLACED TO [facility]- NO BEDS CALL PLACED TO [facility]- NO BEDS CALL PLACED TO [facility]- DISCUSSED CASE WITH DR RODRIGUEZ WHO STATES PT WOULD BENEFIT FROM A LARGER CENTER POST OPERATIVELY BUT UNDER THE CIRCUMSTANCES HE WILL ACCEPT 03/11/21 00:30 Departure - Departure Time of Disposition: 00:34 Disposition: DC/Tfer to [facility] 02 Condition: Critical Clinical Impression: Ischemic bowel disease, Acute renal insufficiency, Elevated troponin I level, Spigelian hernia with bowel obstruction, Elevated lactic acid level - Discharge Information Forms: ED Department Discharge, Interfacility Transfer EMTALA Sepsis Event Note (ED) - Focused Exam Vital Signs: Vital Signs Temp Pulse Resp BP Pulse Ox 03/11/21 00:18 67 133/50 L 03/11/21 00:14 62 24 H 89/69 L 03/10/21 23:30 106/60 03/10/21 23:00 60 24 H 127/55 L 100 03/10/21 22:38 64 22 H 113/72 100 03/10/21 22:16 105/60 03/10/21 22:05 61 22 H 98/58 L 98 03/10/21 22:02 96.7 F L 77 28 H 116/56 L 84 L - My Orders Last 24 Hours: My Active Orders 03/10/21 21:57 Blood Pressure Mgt: Sepsis [RC] Q15MX2 Chest 1V Frontal [CR] Stat CULTURE BLOOD [BC] Stat UA W/MICROSCOPIC [URIN] Stat Sodium Chloride 0.9% [Saline Flush] 10 ml FLUSH Q8HR PRN Blood Culture x2 Reflex Set [OM.PC] Stat Saline Lock Insert [OM.PC] Stat Severe Sepsis Onset Time [OM.PC] Stat EKG 12 Lead [EK] Stat 03/10/21 22:00 CULTURE BLOOD [BC] Stat 03/10/21 22:19 Abdomen Pelvis wo Cont [CT] Stat 03/10/21 22:34 REFLEX LACTIC ACID YES OR NO [CHEM] Routine - Assessment/Plan Last 24 Hours: My Active Orders 03/10/21 21:57 Blood Pressure Mgt: Sepsis [RC] Q15MX2 Chest 1V Frontal [CR] Stat CULTURE BLOOD [BC] Stat UA W/MICROSCOPIC [URIN] Stat Sodium Chloride 0.9% [Saline Flush] 10 ml FLUSH Q8HR PRN Blood Culture x2 Reflex Set [OM.PC] Stat Saline Lock Insert [OM.PC] Stat Severe Sepsis Onset Time [OM.PC] Stat EKG 12 Lead [EK] Stat 03/10/21 22:00 CULTURE BLOOD [BC] Stat 03/10/21 22:19 Abdomen Pelvis wo Cont [CT] Stat 03/10/21 22:34 REFLEX LACTIC ACID YES OR NO [CHEM] Routine Assessment:: 1. ISCHEMIC BOWEL/BOWEL OBSTRUCTION 2. NAUSEA/VOMITING 3. BOWEL OBSTRUCTION WITH LARGE SPIGELIAN HERNIA 4. ELEVATED LACTIC ACID 5. ELEVATED TROP I 6. ACUTE RENAL INSUFFICIENCY Plan: 1. TRANSFER TO [facility]- DR RODRIGUEZ 2. SUPPORTIVE CARE 3. IVF HYDRATION 4. ANTIBIOTICS GIVEN
[2021-03-10] MEDS ORDERED: Sodium Chloride 0.9% 50 ML IV SCH (22:30)
[2021-03-10] MEDS: Cefepime 1 GM Vial IVPUSH ONE (23:30)
[2021-03-10] MEDS: Sodium Chloride 0.9% 10 ML Syringe FLUSH PRN (23:31)
[2021-03-10] MEDS: Iopamidol 755 Mg/ML 75 ML Bottle IVPUSH ONE (23:32)
[2021-03-11 00:19] VITALS: BP 133/50; PULSE 67
[2021-03-11] MEDS: Sodium Chloride 0.9% 1,000 ML IV SCH (00:48)
--- NOTE | 2021-03-11 09:00 | CR ---
[id number] RAD/RAD Chest PA or AP 1V EXAM: RAD Chest PA or AP 1V INDICATION: DYSPNEA COMPARISON: None. DISCUSSION/IMPRESSION: Bilateral symmetric lung hyperinflation consistent with COPD. Mild amount of bibasal pleural-parenchymal scarring. Left chest wall cardiac conduction device in place. Heart is normal in size. Central vascular congestion. Possible calcified granuloma in the right upper lung. Consider noncontrast chest CT for further evaluation. Scott Villafana MD 03/11/21 0859 Thank you for allowing us to participate in the care of your patient.
--- NOTE | 2021-03-11 09:03 | CT ---
[id number] CT/CT Abdomen Pelvis WO IV EXAM: CT Abdomen Pelvis WO IV CLINICAL DATA: PAIN COMPARISON STUDY: None. FINDINGS: Moderate to advanced predominantly centrilobular emphysema. Coronary artery disease. Atherosclerotic calcifications of the aorta and its branches. Postsurgical changes of the stomach. Large left spigelian hernia. This contains a large segment of the distal transverse and descending colon. The contain bowel is gas-filled and dilated. There is pneumatosis identified within the bowel proximal to the hernia. A few prominent loops of small bowel. The liver, gallbladder, adrenal glands are unremarkable. Cortical atrophy of the kidneys. Fatty atrophy of the pancreas. Simple appearing left renal cyst. No lymphadenopathy, free fluid, or pneumoperitoneum. Scattered changes of spondylosis the spine. No fracture or osseous lesion. IMPRESSION: 1. Large left spiculated hernia containing a large segment of the distal transverse and descending colon. There is pneumatosis identified within the bowel proximal to the hernia. Findings are consistent with obstruction. Michael Brady DO 03/11/21 0902 Thank you for allowing us to participate in the care of your patient.
== END 2021-03-11 01:00 ==
LOC: KA.ED 21:49
DX: K43.6 Other and unspecified ventral hernia with obstruction, without gangrene (principal); K58.9 Irritable bowel syndrome, unspecified; R79.89 Other specified abnormal findings of blood chemistry; R74.02 Elevation of levels of lactic acid dehydrogenase [LDH]; N28.9 Disorder of kidney and ureter, unspecified; I10 Essential (primary) hypertension; J45.909 Unspecified asthma, uncomplicated; M19.90 Unspecified osteoarthritis, unspecified site; Z91.048 Other nonmedicinal substance allergy status; Z88.5 Allergy status to narcotic agent; Z91.018 Allergy to other foods; Z79.82 Long term (current) use of aspirin; Z79.899 Other long term (current) drug therapy; Z20.822 Contact with and (suspected) exposure to COVID-19
CPT/HCPCS: 36415; 71045; 74176; 80053; 83605; 84484; 85025; 87040; 93005; 96374; 99285; J0692; J7030; U0002